=== PATIENT | male | born 1955 | race Two or more races ===

== ENCOUNTER 2016-04-27 21:34 | Inpatient (IN) | payer MEDICAID, OTHER ==
[~2016-04-27] VITALS: Ht 172.7 cm; Wt 92.5 kg
[2016-04-27 23:19] LABS: Basophils # (auto) 0 uL; Basophils % (auto) 0.8 % (0.0-2.0); DEFINITIVE VIEW TRANSMISSION; Eosinophils # (auto) 0.3 uL; Eosinophils % (auto) 4.5 % (0.0-7.0); Hematocrit 32.2 % (41.0-53.0); Hemoglobin 9.5 g/dL (13.5-17.5); Lymphocytes # (auto) 1.4 uL; Lymphocytes % (auto) 22.5 % (10.0-50.0); Mean Corpuscular Hemoglobin 19.9 pg (28.0-32.0); Mean Corpuscular Hgb Conc. 29.4 g/dL (32.0-36.0); Mean Corpuscular Volume 67.6 fL (80.0-100.0); Mean Platelet Volume 11.7 fL (7.4-10.4); Monocytes # (auto) 0.5 uL; Monocytes % (auto) 7.3 % (0.0-12.0); Neutrophils # (auto) 4.2 uL; Neutrophils % (auto) 64.9 % (37.0-80.0); Platelet Count (auto) 242 10^3/uL (140-450); Red Cell Distribution Width 18.3 % (11.6-16.0); SUSPECT VIEW TRANSMISSION; White Blood Cell 6.4 10^3/uL (4.4-10.8)
[2016-04-27 23:34] LABS: Albumin 3.8 g/dL (3.4-5.0); BUN/Creatinine Ratio 23.9; Bilirubin, Total 0.6 mg/dL (0.2-1.0); Calcium 8.7 mg/dL (8.5-10.1); Magnesium 2.5 mg/dL (1.6-2.6); Potassium 3.2 mmol/L (3.5-5.1); Total Protein 7.3 g/dL (6.4-8.2)
[2016-04-28 00:11] LABS: INR 0.99 (0.9-1.15); Partial Thromboplastin Time 24.7 sec (22.64-33.71); Prothrombin Time 10.2 sec (9.37-12.3)
[2016-04-28 01:06] LABS: Anisocytosis Moderate; Hypochromia Marked; Microcytosis Marked; Platelet Estimate Adequate
[2016-04-28 01:07] LABS: Ovalocytes MODERATE
[2016-04-28 01:08] LABS: Hypersegmented Neutrophils Present
[2016-04-28] MEDS ORDERED: POTASSIUM CHL 20 Meq TABLET PO ONE (02:00)
[2016-04-28] MEDS ORDERED: NITROGLYCERIN 0.4 MG SL TAB SL ONE (02:45)
[2016-04-28] MEDS ORDERED: ASPirin 325 MG TAB PO ONE (02:45)
[2016-04-28] MEDS ORDERED: MORPHINE SULF INJ 2 MG/ML SYRINGE 1ML IV PRN (04:30)
[2016-04-28] MEDS ORDERED: NITROGLYCERIN 0.4 MG SL TAB SL PRN (04:30)
[2016-04-28] MEDS ORDERED: TEMAZEPAM 15 MG CAP PO PRN (04:30)
[2016-04-28] MEDS ORDERED: ONDANSETRON HCL 4 MG/2 ML VIAL IV PRN (04:30)
[2016-04-28] MEDS ORDERED: HYDROcodone-ACET 5/325MG TAB PO PRN (04:30)
[2016-04-28] MEDS ORDERED: ACETAMINOPHEN 325 MG TAB PO PRN (04:30)
[2016-04-28] MEDS: POTASSIUM CHL 20 Meq TABLET PO SCH ×2 (11:05→21:34)
[2016-04-28] MEDS: ASPirin 81 mg TAB PO SCH (11:05)
[2016-04-28] MEDS: FAMOTIDINE 20 MG TAB PO SCH ×2 (11:05→21:34)
[2016-04-28] MEDS: ENOXAPARIN SOD 40 MG/0.4 ML SYRINGE SC SCH (11:05)
[2016-04-28 17:35] VITALS: BP 129/77
[2016-04-28 20:10] VITALS: BP 121/69
[2016-04-28 21:52] VITALS: BP 121/69
[2016-04-29 05:26] VITALS: BP 104/61
[2016-04-29 07:23] LABS: Albumin 3.7 g/dL (3.4-5.0); BUN/Creatinine Ratio 19.1; Bilirubin, Total 0.7 mg/dL (0.2-1.0); Calcium 8.8 mg/dL (8.5-10.1); Magnesium 2.3 mg/dL (1.6-2.6); Total Protein 7.2 g/dL (6.4-8.2)
[2016-04-29 07:35] LABS: Basophils # (auto) 0 uL; Basophils % (auto) 0.1 % (0.0-2.0); DEFINITIVE VIEW TRANSMISSION; Eosinophils # (auto) 0.3 uL; Eosinophils % (auto) 3.8 % (0.0-7.0); Hemoglobin 10.2 g/dL (13.5-17.5); Lymphocytes # (auto) 1.1 uL; Lymphocytes % (auto) 15.7 % (10.0-50.0); Mean Corpuscular Volume 66.6 fL (80.0-100.0); Mean Platelet Volume 11.4 fL (7.4-10.4); Monocytes # (auto) 0.5 uL; Neutrophils # (auto) 5.2 uL; Neutrophils % (auto) 73.4 % (37.0-80.0); Platelet Count (auto) 241 10^3/uL (140-450); Red Cell Distribution Width 18.3 % (11.6-16.0); SUSPECT VIEW TRANSMISSION; White Blood Cell 7.2 10^3/uL (4.4-10.8)
[2016-04-29] MEDS: FAMOTIDINE 20 MG TAB PO SCH ×2 (08:54→21:32)
[2016-04-29] MEDS: POTASSIUM CHL 20 Meq TABLET PO SCH ×2 (08:54→21:31)
[2016-04-29 08:57] VITALS: BP 118/71
[2016-04-29] MEDS: ASPirin 81 mg TAB PO SCH (10:00)
[2016-04-29] MEDS: ENOXAPARIN SOD 40 MG/0.4 ML SYRINGE SC SCH (10:00)
[2016-04-29] MEDS ORDERED: GOLYTELY 4L KIT PO ONE (12:30)
[2016-04-29 13:36] VITALS: BP 115/77
[2016-04-29 16:33] VITALS: BP 123/85
[2016-04-29 21:54] LABS: Urine RBC None Seen /hpf (0 - 3)
[2016-04-29 22:00] VITALS: BP 137/77
[2016-04-29 23:21] LABS: Urine Bilirubin Negative (Negative); Urine Blood Negative /uL (Negative); Urine Color Yellow (Yellow); Urine Glucose Normal (Normal); Urine Ketone Negative (Negative); Urine Mucus FEW (None Seen); Urine Nitrite Negative (Negative); Urine Urobilinogen Normal (Negative); Urine pH 5.5 (5.0-8.0)
[2016-04-30 05:00] VITALS: BP 99/66
[2016-04-30 06:45] LABS: Basophils # (auto) 0 uL; DEFINITIVE VIEW TRANSMISSION; Eosinophils # (auto) 0 uL; Hematocrit 31.8 % (41.0-53.0); Hemoglobin 9.5 g/dL (13.5-17.5); Lymphocytes # (auto) 0.3 uL; Lymphocytes % (auto) 2.1 % (10.0-50.0); Mean Corpuscular Hemoglobin 19.7 pg (28.0-32.0); Mean Corpuscular Hgb Conc. 29.7 g/dL (32.0-36.0); Mean Corpuscular Volume 66.3 fL (80.0-100.0); Mean Platelet Volume 9.4 fL (7.4-10.4); Monocytes # (auto) 0.4 uL; Monocytes % (auto) 2.7 % (0.0-12.0); Neutrophils # (auto) 14.6 uL; Neutrophils % (auto) 95.2 % (37.0-80.0); Platelet Count (auto) 185 10^3/uL (140-450); White Blood Cell 15.3 10^3/uL (4.4-10.8)
[2016-04-30] MEDS ORDERED: LIDOCAINE VISCOUS 2% 15ML UD ONE (07:08)
[2016-04-30] MEDS ORDERED: NALOXONE HCL 0.4 MG/ML VIAL ONE (07:08)
[2016-04-30] MEDS ORDERED: diphenhdrAMINE HCL 50 MG/1 ML VL ONE (07:08)
[2016-04-30] MEDS ORDERED: FLUMAZENIL 0.1 MG/ML INJ 10ML MDV IV ONE (07:08)
[2016-04-30] MEDS ORDERED: SODIUM CHLORIDE LOCK 10 ML ONE (07:08)
[2016-04-30 08:00] VITALS: BP 103/61
[2016-04-30] MEDS: MIDAZOLAM HCL 5 MG/ML-1ML VIAL ONE ×2 (08:51→08:54)
[2016-04-30] MEDS: fentaNYL CITRATE 100 MCG/2 ML VL ONE ×2 (08:51→08:54)
[2016-04-30 08:54] LABS: Hypochromia Slight; Microcytosis Slight; Ovalocytes FEW; Platelet Estimate Adequate
[2016-04-30 09:00] VITALS: BP 103/61
[2016-04-30] MEDS: FAMOTIDINE 20 MG TAB PO SCH (10:17)
[2016-04-30] MEDS: POTASSIUM CHL 20 Meq TABLET PO SCH (10:17)
[2016-04-30] MEDS: ENOXAPARIN SOD 40 MG/0.4 ML SYRINGE SC SCH (10:18)
[2016-04-30] MEDS: ASPirin 81 mg TAB PO SCH (10:18)
[2016-04-30 13:00] VITALS: BP 115/68
[2016-04-30 14:55] VITALS: BP 148/75
== END 2016-04-30 16:30 | disposition home or self-care (01) | DRG 203 ==
LOC: ER 21:47 → TELE 21:58 → TELE-EAST 04-28 08:30
PROVIDERS: ADMIT Nurse Practitioner; ATTEND Internal Medicine
PROC: 0DJ08ZZ Inspection of Upper Intestinal Tract, Via Natural or Artificial Opening Endoscopic (ICD-10-PCS; principal; 2016-04-30 08:50)
PROC: 0DJD8ZZ Inspection of Lower Intestinal Tract, Via Natural or Artificial Opening Endoscopic (ICD-10-PCS; 2016-04-30 08:50)
DX: R07.89 Other chest pain (principal); E87.6 Hypokalemia; K64.4 Residual hemorrhoidal skin tags; D50.9 Iron deficiency anemia, unspecified
CPT/HCPCS: 36415; 43235; 45378; 71010; 80053; 81001; 82728; 82962; 83735; 84443; 84484; 85025; 85610; 85730; 93005; 93306; J2250